=== PATIENT | female | born 1995 | race Caucasian/White ===

== ENCOUNTER → 2020-10-30 15:55 | Outpatient (CLI) | payer OTHER, SELFPAY ==
[2016-12-18 10:48] VITALS: BMI 31.8
[2020-11-02 20:07] LABS: Chlamydia By Nucleic Acid AMP Negative (Negative)
[2020-11-02 20:53] LABS: Gonococcus By Nucleic Acid AMP Negative (Negative)
[2020-11-03 15:41] LABS: HPV Reflexed? NOT INDICATED
== END ==
PROVIDERS: Visit Provider Student in an Organized Health Care Education/Training Program
DX: Z12.4 Encounter for screening for malignant neoplasm of cervix (principal); Z11.3 Encounter for screening for infections with a predominantly sexual mode of transmission
CPT/HCPCS: 87491; 87591; 88175; G0145

== ENCOUNTER 2023-07-16 21:23 | Emergency (ER) | payer SELFPAY ==
[2023-07-16 21:25] VITALS: BP 108/73; PULSE 98; RESP 18; TEMP 36.1; O2SAT 96
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
--- NOTE | 2023-07-16 21:45 | EKG12_ITS ---
Test Reason : Blood Pressure : / mmHG Vent. Rate : 103 BPM Atrial Rate : 103 BPM P-R Int : 116 ms QRS Dur : 088 ms QT Int : 346 ms P-R-T Axes : 076 075 043 degrees QTc Int : 453 ms Sinus tachycardia Otherwise normal ECG Confirmed by ROMULO URIAS, SETH ([id number]), news assignment editor CHIQUITA MARK ([id number]) on 07/22/2023 12:05:10 PM Referred By: Confirmed By:SETH SEBASTIAN MD
[2023-07-16 21:48] LABS: Absolute Lymphocyte Count 2.24 X10^3/uL (0.83-4.51); Absolute Neutrophil Count 7.8 X10^3/uL (2.0-7.7); Basophil# 0.05 X10^3/uL; Basophil% 0.4 % (0-1); Eosinophil# 0.09 X10^3/uL; Eosinophils% 0.8 % (0-5); Hemoglobin 14.2 g/dL (12.0-15.0); Lymphocyte # 2.24 X10^3/ul (0.83-4.51); Lymphocyte % 20.1 % (19-41); Mean Corpuscular Hgb 32.9 pg (27.0-32.0); Mean Corpuscular Volume 99.5 fL (81-99); Mean Platelet Vol. 8.9 fl (6.2-12.0); Monocyte# 0.86 X10^3/uL; Monocyte% 7.7 % (0-10); NRBC Flagged by Analyzer 0 % (0-5); Neutrophil # 7.83 X10^3/uL (2.7-7.7); Neutrophil % 70.6 % (47-70); Platelet Count 232 K/mm3 (150-450); RBC Distribution Width CV 12.4 % (11.6-14.6); RBC Distribution Width SD 45.8 fl (35.1-43.9); Red Blood Count 4.32 M/mm3 (4.2-5.4); White Blood Count 11.1 K/mm3 (4.4-11.0)
[2023-07-16 21:52] LABS: Bacteria 0 SEEN /hpf (None Seen); Mucous, Urine 0 SEEN /hpf (<or=2+); Red Blood Cells-Urine 0 SEEN /hpf (0-5); White Blood Cells 0 SEEN /hpf (0-5)
[2023-07-16 21:54] LABS: Color, Urine Yellow (Yellow); Glucose, Dipstick Normal (Normal); Ketone-Dipstick Negative (Negative); Leukocyte Esterase-Dipstick Negative /ul (Negative); Nitrite-Dipstick Negative (Negative); Occult Blood-Urine Negative /ul (Negative); Protein-Dipstick 15 mg/dl (Negative); Urine Bilirubin Dipstick Negative (Negative); Urine Clarity Sl. Cloudy (Clear); Urine Urobilinogen Normal (Normal)
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
[2023-07-16 22:04] LABS: Amorphous Sediment 1+ URATE; Squamous Epithelial Cells - UA 0-5 SEEN /hpf (5-10)
[2023-07-16 22:05] LABS: Internal QC Validated? YES +Cl - CLEAR BKGD; Pregnancy, Serum, hCG Quali. NEGATIVE Negative
[2023-07-16 22:09] LABS: AST(SGOT) 12 U/L (15-37); Alanine Aminotransfer ALT/SGPT 19 U/L (13-56); Albumin, Serum 4.1 g/dL (3.2-5.0); Alkaline Phosphatase 42 U/L (45-117); Anion Gap 13 (5-15); BUN 9 mg/dL (7-18); Bilirubin, Direct 0.12 mg/dL (0.00-0.30); Calcium,Total 8.4 mg/dL (8.5-10.1); Chloride 111 mmol/L (98-107); Creatinine, Serum 0.82 mg/dL (0.55-1.02); EST Glomerular Filtration Rate 87 mL/min (>60); Est Glom Filt Rate - Afr Amer 105 mL/min (>60); Estimated Creatinine Clearance 82.51 ml/min; Globulin 3.2 g/dL (2.2-4.2); Glucose 115 mg/dL (74-106); Potassium 3.3 mmol/L (3.5-5.1); Protein, Total 7.3 g/dL (6.4-8.2); Sodium Level 143 mmol/L (136-145)
[2023-07-16 22:10] LABS: Amphetamine Urine VISTA NEGATIVE (<1000 ng/mL); Barbiturate Urine VISTA NEGATIVE (< 200 ng/mL); Benzodiazepine Urine VISTA NEGATIVE (< 200 ng/mL); Cocaine Urine VISTA NEGATIVE (< 300 ng/mL); Ecstacy Urine VISTA NEGATIVE (< 500 ng/mL); Methadone Urine VISTA NEGATIVE (< 300 ng/mL); PCP Urine VISTA NEGATIVE (< 25 ng/mL); THC Urine VISTA POSITIVE (< 50 ng/mL); Vista UDS pH Range 6
[2023-07-16 22:45] VITALS: BP 100/65; PULSE 83; RESP 14; O2SAT 96
--- NOTE | 2023-07-16 23:05 | ED.RN ---
Pt began yelling out/screaming, stated she had to pee. Staff provided pt with bedpan. Pt began writhing in bed and peeing on herself, spilling the bedpan. This RN attempted to educated pt on how her behavior would determine her restraint needs. Pt screamed and cursed at RN and MD, told female RN's they weren't female and couldn't understand and other oddities. MD aware, new orders placed.
[2023-07-16] MEDS: Ziprasidone IM 20 MG/ML VIAL IM (23:13)
[2023-07-16] MEDS: LORazepam 2 MG/ML Syringe IM (23:13)
[2023-07-16 23:30] VITALS: BP 129/96
[2023-07-16 23:45] VITALS: BP 112/69; PULSE 97; RESP 14; O2SAT 99
[2023-07-17] VITALS (7 sets, daily range): BP systolic 103–135; BP diastolic 63–88; PULSE 77–126; RESP 10–28; O2SAT 98–100
--- NOTE | 2023-07-17 02:53 | ED.RN ---
Staff in to draw second ETOH level. Pt begins swearing at staff, yelling I can't be fucking pink slipped, you cannot pink slip me. I'm fucking leaving. Pt fighting against restraints stating she is going to run. Restraints left in restraints for pt and staff safety. Crisis in to see pt.
--- NOTE | 2023-07-17 03:37 | ED.RN ---
Per crisis and Dr. Cross, pt is safe to go home with boyfriend. Restraints to be removed and pt is okay to leave.
== END 2023-07-17 03:42 | disposition home or self-care (01) ==
PROVIDERS: Emergency Provider Emergency Medicine; Visit Provider Emergency Medicine
DX: F23 Brief psychotic disorder (principal); F10.129 Alcohol abuse with intoxication, unspecified; F17.210 Nicotine dependence, cigarettes, uncomplicated
CPT/HCPCS: 80048; 80076; 80307; 81001; 82077; 84703; 85025; 87811; 93005; 96372; 99284; A4216; J3486

== ENCOUNTER → 2025-05-09 | Outpatient (CLI) | payer MEDICAID, SELFPAY ==
[2025-05-09 13:47] LABS: Ammonia 22.2 umol/L (11-51)
[2025-05-09 13:50] LABS: Free T3 2.8 pg/mL (2.18-3.98); T4 Total, Thyroxin 6.8 ug/dL (4.8-13.9); Vitamin B12 578 pg/mL (180-914); Vitamin D,25 Hydroxy 27.3 ng/mL (30-100)
== END | disposition home or self-care (01) ==
LOC: LAB 12:19
PROVIDERS: Referring Provider Psychiatry & Neurology Psychiatry; Visit Provider Psychiatry & Neurology Psychiatry
DX: Z79.899 Other long term (current) drug therapy (principal); R53.83 Other fatigue
CPT/HCPCS: 36415; 82140; 82306; 82607; 84436; 84439; 84443; 84481